=== PATIENT | female | born 1965 | race Caucasian/White ===

== ENCOUNTER 2017-07-03 11:19 | Emergency (ER) | payer MEDICAID ==
[~2017-07-03 11:19] MED LIST: PROC-8 PO
[2017-07-03] MEDS ORDERED: BENZ-16 PO (14:26)
[2017-07-03] MEDS ORDERED: AZIT-57 PO (14:26)
== END 2017-07-03 12:40 | disposition left against medical advice (07) ==
LOC: ER 11:20
DX: R05 Cough (principal); Z53.21 Procedure and treatment not carried out due to patient leaving prior to being seen by health care provider

== ENCOUNTER 2019-02-27 13:08 | Emergency (ER) | payer OTHER ==
[~2019-02-27] VITALS: Ht 152.4 cm; Wt 55.9 kg
[~2019-02-27 13:08] MED LIST changes: +LIDOcaine 1% 30ml preserv. free vial ONE
[2019-02-27 13:13] VITALS: BP 136/77
[2019-02-27] MEDS ORDERED: triamcinolone acetonide 40mg/ml inj IM ONE (14:20)
[2019-02-27] MEDS ORDERED: ibuprofen tablet 400 MG TABLET PO ONE (14:20)
[2019-02-27] MEDS ORDERED: acetaminophen 325mg tablet PO ONE (14:20)
--- NOTE | 2019-02-27 14:35 | NUR ---
DR SMITH AT BEDSIDE TO INJECT RT SHOULDER
[2019-02-27] MEDS ORDERED: CYCL-1 PO (14:40)
[2019-02-27] MEDS ORDERED: ACET-2615 PO (14:40)
== END 2019-02-27 14:55 | disposition home or self-care (01) ==
LOC: ER 13:09
DX: M25.511 Pain in right shoulder (principal); E78.00 Pure hypercholesterolemia, unspecified; K21.9 Gastro-esophageal reflux disease without esophagitis; G89.29 Other chronic pain; F32.9 Major depressive disorder, single episode, unspecified; Z86.69 Personal history of other diseases of the nervous system and sense organs; Z90.710 Acquired absence of both cervix and uterus; Z98.890 Other specified postprocedural states; Z98.51 Tubal ligation status; Z59.0 Homelessness; Z85.89 Personal history of malignant neoplasm of other organs and systems; Z88.8 Allergy status to other drugs, medicaments and biological substances; Z79.899 Other long term (current) drug therapy
CPT/HCPCS: 73030; 96372; 99283; J2001; J3301

== ENCOUNTER 2021-08-01 18:25 | Emergency (ER) | payer MEDICAID ==
[~2021-08-01] VITALS: Ht 152.4 cm; Wt 56.9 kg
[~2021-08-01 18:25] MED LIST changes: +CYCL-1 PO; -LIDOcaine 1% 30ml preserv. free vial ONE
[2021-08-01] MEDS ORDERED: HYDROcodone/acetaminophen 5mg/325mg tablet PO ONE (18:35)
[2021-08-01] MEDS ORDERED: ibuprofen tablet 400 MG TABLET PO ONE (19:25)
[2021-08-01] MEDS ORDERED: acetaminophen 325mg tablet PO ONE (19:25)
[2021-08-01 19:41] VITALS: BP 117/78
== END 2021-08-01 19:53 | disposition home or self-care (01) ==
LOC: ER 18:26
DX: S63.502A Unspecified sprain of left wrist, initial encounter (principal); M25.532 Pain in left wrist; E78.00 Pure hypercholesterolemia, unspecified; K21.9 Gastro-esophageal reflux disease without esophagitis; G89.29 Other chronic pain; F32.9 Major depressive disorder, single episode, unspecified; F17.200 Nicotine dependence, unspecified, uncomplicated; Z86.69 Personal history of other diseases of the nervous system and sense organs; Z85.41 Personal history of malignant neoplasm of cervix uteri; Z98.51 Tubal ligation status; Z90.710 Acquired absence of both cervix and uterus; Z59.00 Homelessness unspecified; Z88.8 Allergy status to other drugs, medicaments and biological substances; Z79.899 Other long term (current) drug therapy; W19.XXXA Unspecified fall, initial encounter; Y93.89 Activity, other specified; Y92.89 Other specified places as the place of occurrence of the external cause; Y99.8 Other external cause status
CPT/HCPCS: 29125; 73110; 99283

== ENCOUNTER 2024-08-24 11:15 | Day surgery (SDC) | payer MEDICAID ==
[2024-08-17 16:02] LABS: BASOPHILS # (AUTO) 0.1 X10'3 (0-0.2); BASOPHILS % (AUTO) 1.1 % (0-1); EOSINOPHILS # (AUTO) 0.4 X10'3 (0-0.9); EOSINOPHILS % (AUTO) 4.4 % (0-6); LYMPHOCYTES # (AUTO) 2.6 X10'3 (1.1-4.8); LYMPHOCYTES % (AUTO) 31.1 % (21-51); MEAN CORPUSCULAR HEMOGLOBIN 30.3 PG (27.0-31.0); MEAN CORPUSCULAR HGB CONC 34.1 g/dL (33.0-36.5); MEAN CORPUSCULAR VOLUME 89.1 FL (78-98); MEAN PLATELET VOLUME 7.1 FL (7.4-10.4); MONOCYTES # (AUTO) 0.5 X10'3 (0-0.9); MONOCYTES % (AUTO) 5.7 % (2-12); NEUTROPHILS # (AUTO) 4.8 X10'3 (1.8-7.7); NEUTROPHILS % (AUTO) 57.7 % (42-75); PRE OP HEMATOCRIT 35.8 % (35.0-45.0); PRE OP HEMOGLOBIN 12.2 g/dL (12.0-16.0); PRE OP PLATELET COUNT 488 X10'3 (140-440); PRE OP WHITE BLOOD COUNT 8.3 10'3 (4.8-10.8); RED BLOOD COUNT 4.01 X10'6 (4.20-5.60)
[2024-08-17 16:17] LABS: ALBUMIN 3.6 G/DL (3.4-5.0); ALBUMIN/GLOBULIN RATIO 0.9 (1.1-1.5); ALKALINE PHOSPHATASE 140 IU/L (46-116); BLOOD UREA NITROGEN 16 MG/DL (7-18); BUN/CREATININE RATIO 15.7 (10.0-20.0); CALCIUM 9.4 MG/DL (8.5-10.1); CHLORIDE 103 MMOL/L (99-107); CREATININE 1.02 MG/DL (0.40-0.90); PRE OP ALT 22 U/L (30-65); PRE OP ANION GAP 8 (8-16); PRE OP AST 15 U/L (10-37); PRE OP BILIRUB, TOTAL 0.4 MG/DL (0.0-1.0); PRE OP GLUCOSE 91 MG/DL (70-104); PRE OP POTASSIUM 3.5 MMOL/L (3.4-5.1); PRE OP SODIUM 137 MMOL/L (135-145); TOTAL CARBON DIOXIDE 25.9 MMOL/L (24-32); TOTAL PROTEIN 7.5 G/DL (6.4-8.2); eGFR 56 ML/MIN
[~2024-08-24] VITALS: Ht 152.4 cm; Wt 58.3 kg
[2024-08-24] VITALS (10 sets, daily range): BP systolic 126–143; BP diastolic 73–97; PULSE 83–94; RESP 13–17; TEMP 98.5; O2SAT 97–100
[~2024-08-24 11:15] MED LIST changes: -CYCL-1 PO; +FLO0.4C PO; +HYDR-3973 PO; +LACT1CAP26 PO; -PROC-8 PO
[2024-08-24] MEDS ORDERED: iohexol 300 MG/1 ML 50ml polymer ONE (12:04)
[2024-08-24] MEDS ORDERED: fentaNYL/PF 50MCG/1 ML 2ML syringe IV PRN ×2 (12:10)
[2024-08-24] MEDS ORDERED: morphine 2 MG/ML inj. syringe IV PRN (12:10)
[2024-08-24] MEDS ORDERED: labetalol 20mg/4ml (5mg/ml) syringe IV PRN (12:10)
[2024-08-24] MEDS ORDERED: ondansetron/PF 4mg/2ml inj IV PRN (12:10)
[2024-08-24] MEDS ORDERED: hydrALAZINE 20mg/ml inj. IV PRN (12:10)
[2024-08-24] MEDS ORDERED: ringers solution, lacted 1,000 ML IV SCH (12:10)
[2024-08-24] MEDS ORDERED: morphine 4 MG/ML inj SYRINge IV PRN (12:10)
[2024-08-24] MEDS: famotidine 20mg tablet PO ONE (12:32)
[2024-08-24] MEDS: ceFAZolin 2gm in dextrose, iso 50 ML IV ONE (12:32)
[2024-08-24] MEDS: ringers solution, lacted 1,000 ML IV SCH (12:32)
[2024-08-24] MEDS ORDERED: dexamethasone sod phosphate 4mg/ml inj. ONE (13:07)
[2024-08-24] MEDS ORDERED: LIDOcaine 2% (20mg/ml) 5ml vial ONE (13:07)
[2024-08-24] MEDS ORDERED: ondansetron/PF 4mg/2ml inj ONE (13:07)
[2024-08-24] MEDS ORDERED: fentaNYL/PF 50MCG/1 ML 2ML syringe ONE ×2 (13:07→14:15)
[2024-08-24] MEDS ORDERED: propofol inj 20 ML IV ONE (13:07)
[2024-08-24] MEDS ORDERED: sevoflurane 250ml liquid IH ONE (13:14)
[2024-08-24] MEDS ORDERED: rocuronium 10mg/ml inj IV ONE (13:51)
[2024-08-24] MEDS: iohexol 300 MG/1 ML 10ml vial IV ONE (14:15)
== END 2024-08-24 16:09 | disposition home or self-care (01) ==
LOC: PAS 11:15
PROVIDERS: ATTEND Urology
DX: N20.1 Calculus of ureter (principal); F17.210 Nicotine dependence, cigarettes, uncomplicated; F32.A Depression, unspecified; Z88.8 Allergy status to other drugs, medicaments and biological substances; K21.9 Gastro-esophageal reflux disease without esophagitis; Z79.899 Other long term (current) drug therapy
CPT/HCPCS: 36415; 52356; 74420; 80053; 82948; 85025; 93005; C1758; C2617; J0690; J1100; J2003; J2405; J2704; J3010; J3490; J7120; Q9967; Z7506; Z7508; Z7512; 76000; A4618; C1769; C1894

== ENCOUNTER 2025-03-04 02:04 | Emergency (ER) | payer MEDICAID ==
[~2025-03-04] VITALS: Ht 152.4 cm; Wt 53.6 kg
[~2025-03-04 02:04] MED LIST changes: -FLO0.4C PO; -LACT1CAP26 PO; +TAMS-55 PO
[2025-03-04] MEDS ORDERED: iohexol 300mg/ml 100ml inj. ONE (03:19)
[2025-03-04] MEDS: morphine 4 MG/ML inj SYRINge IV PRN (03:23)
[2025-03-04] MEDS: ketorolac trometh 15mg/ml vial 15 MG/ML ML IV ONE (03:23)
[2025-03-04] MEDS: ondansetron/PF 4mg/2ml inj IV ONE (03:24)
[2025-03-04] MEDS: normal saline 1000ML IV soln IVB ONE (03:24)
--- NOTE | 2025-03-04 03:28 | Physician Documentation ---
History of Present Illness ~ Chief Complaint: Flank Pain Stated Complaint: RIGHT SIDED ABD PAIN,NAUSEA Time Seen by MD: 03:06 Primary Medical Doctor: NONE Source: patient Mode of Arrival: POV Exam Limitations: no limitations HPI Chief Complaint: Abdominal pain Caveat: None Independent Historians: None History of Present Illness: Patient is a 59-year-old woman comes in from home complaining of lower abdominal pain and primarily on the right. Pain began three days ago. Pain came on gradually in his gotten progressively worse. Patient's pain is 9/10. Patient states in describes her pain as feeling like someone is squeezing her on the inside. No alleviating or exacerbating factors. Patient has had nausea but no vomiting. No diarrhea. No fever. Patient has had anorexia. Review of systems: All systems were reviewed and are negative except for what is indicated in the history of present illness. Past Medical History: Hemochromatosis Past Surgical History: None Social History: Tobacco use, denies alcohol use or drug use Medications: Reviewed as documented Nursing Notes Allergies: Reviewed as documented in Nursing Notes Medication Reconciliation Allergies: Coded Allergies: Pentazocine Lactate (Verified Allergy, Severe, "", 08/23/24) Scheduled Tamsulosin Hcl* (Flomax*), 1 CAP PO DAILY, (Reported) Scheduled PRN Hydrocodone Bit/Acetaminophen (Hydrocodone-Apap 10-325 Tablet), 1 TAB PO Q6H PRN for pain, (Reported) Past Medical History Past Medical History: Seizures, High Cholesterol, GERD, UTI, Chronic Back Pain, Cervical Cancer/Dysplasia, Depression Past Surgical History: , hysterectomy, orthopedic surgeries, tubal ligation Alcohol Use: None Drug Use: none Lives with: Other Lives In: Homeless Occupation: disabled Review of Systems All Other Systems at this time: Reviewed and Negative ROS Patient denies any other acute symptoms other than above. All other systems are negative Physical Exam Vital Signs: RN Vital Signs have been reviewed: Yes, Temperature: 98.6, Source: Oral, Heart Rate: 91, Respiratory Rate: 16, BP: 136/77, Pulse Oximetry: 99, Weight: 53.640 Oxygen Flow Rate: 0 Pulse Oximetry Reflects: adequate oxygenation Physical Exam General Appearance: MODERATE DISTRESS HEENT: Normal OP, moist oral mucosa, PERRL, EOMI Neck: supple, normal ROM, trachea midline Pulmonary: No respiratory distress, CTA, BS equal Cardiac: RRR, no murmur, rub or gallop, GI: nondistended, soft, DIFFUSE RIGHT-SIDED ABDOMINAL TENDERNESS, VOLUNTARY GUARDING, normal bowel sounds Extremities: normal ROM, no swelling, non-tender Skin: intact, dry, warm, no rashes Neuro: AAOx3, speech is clear, no focal motor weakness Psych: normal affect, good eye contact, no apparent hallucination, normal speech Progress Results/Orders Results/Orders Orders - PETER CASTELLANOS MD Saline Lock (03/04/25 03:09) Nothing By Mouth (03/04/25 Dinner) Straight Cath For Urine Sample (03/04/25 03:09) Ed Iv Pain Medications (03/04/25 03:09) Ct Abdomen Pelvis (03/04/25 03:55) Monitor (03/04/25 03:09) Morphine Iv (03/04/25 03:10) Normal Saline Bolus (03/04/25 03:10) Ultrasound Of Abdomen (03/04/25 05:03) Completed Orders - PETER CASTELLANOS MD Lipase (03/04/25 03:09) Ondansetron Inj. (Zofran 4mg/2ml Vial) (03/04/25 03:10) Ketorolac Trometh 15mg/Ml Vial (Toradol (03/04/25 03:10) Ct Abdomen Pelvis (03/04/25 03:55) Iohexol 300mg/Ml 100ml Inj. (Omnipaque-3 (03/04/25 03:19) Cbc/Diff (03/04/25 03:29) CMP (03/04/25 03:07) Piperacillin/Tazo 3.375gm/50ml (Zosyn 3. (03/04/25 05:00) Ultrasound Of Abdomen (03/04/25 05:03) Ua W/Microscopic, Cult If Ind (03/04/25 04:55) Medications Received in ER Medications (Trade) Dose Ordered Sig/Parul Route PRN Reason Start Time Stop Time Status Last Admin Dose Admin (Zofran 4mg/2ml vial) 4 mg ONCE ONCE IV 03/04/25 03:10 03/04/25 03:11 DC 03/04/25 03:24 4 MG (morphine inj.) 4 mg Q20M PRN IV moderate to severe pain 4-10 03/04/25 03:10 03/04/25 03:23 4 MG (0.9% sodium chloride (NS) 1000ml IV soln) 1,000 ml ONCE ONCE IVB 03/04/25 03:10 03/04/25 03:11 DC 03/04/25 03:24 1,000 ML (Toradol injection) 15 mg ONCE ONCE IV 03/04/25 03:10 03/04/25 03:11 DC 03/04/25 03:23 15 MG Piperacillin/ Tazobactam/ Dextrose 50 ml @ 100 mls/hr ONCE ONCE IV 03/04/25 05:00 03/04/25 05:29 DC 03/04/25 05:08 100 MLS/HR Vital Signs 03/04/25 03/04/25 03/04/25 03/04/25 02:09 02:50 02:54 03:23 Temp 97.9 98.6 Pulse 90 91 Resp 18 18 16 16 B/P (MAP) 135/84 136/77 (96) Pulse Ox 96 99 O2 Flow Rate 0 03/04/25 03/04/25 03/04/25 03/04/25 03:23 03:35 04:35 04:38 Pulse 89 84 Resp 16 22 16 16 B/P (MAP) 136/81 (99) 135/86 (102) Pulse Ox 98 98 O2 Flow Rate 0 03/04/25 03/04/25 04:38 05:26 Pulse 82 Resp 16 16 B/P (MAP) 129/75 (93) Pulse Ox 98 O2 Flow Rate 0 Laboratory Tests Test 03/04/25 03:07 03/04/25 03:36 03/04/25 04:55 CBC Comment Sodium Level 134 L Potassium Level 3.7 Chloride Level 103 Carbon Dioxide Level 16.9 L Anion Gap 14 Blood Urea Nitrogen 13 Creatinine 0.92 H Estimated GFR/1.73 m2 63 BUN/Creatinine Ratio 14.1 Glucose Level 127 H Calcium Level 9.6 Total Bilirubin 2.7 H Aspartate Amino Transf (AST/SGOT) 228 H Alanine Aminotransferase (ALT/SGPT) 496 H Alkaline Phosphatase 393 H Total Protein 7.8 Albumin 3.7 Globulin 4.1 Albumin/Globulin Ratio 0.9 L Lipase 53 Chemistry Comments White Blood Count 12.0 H Red Blood Count 3.98 L Hemoglobin 12.1 Hematocrit 36.3 Mean Corpuscular Volume 91.3 Mean Corpuscular Hemoglobin 30.5 Mean Corpuscular Hemoglobin Concent 33.4 Red Cell Distribution Width 13.4 Platelet Count 290 Mean Platelet Volume 7.9 Neutrophils (%) (Auto) 80.1 H Lymphocytes (%) (Auto) 10.2 L Monocytes (%) (Auto) 4.7 Eosinophils (%) (Auto) 4.4 Basophils (%) (Auto) 0.6 Neutrophils # (Auto) 9.6 H Lymphocytes # (Auto) 1.2 Monocytes # (Auto) 0.6 Eosinophils # (Auto) 0.5 Basophils # (Auto) 0.1 Urine Specimen Description Cln catch midstream Urine Color Yellow Urine Clarity Clear Urine pH 6.0 Urine Specific Farner <=1.005 Urine Protein Negative Urine Glucose (UA) Negative Urine Ketones Trace H Urine Occult Blood Moderate H Urine Nitrite Negative Urine Bilirubin Negative Urine Urobilinogen 0.2 Urine Leukocyte Esterase Negative Urine RBC 10-20 Urine WBC 0-4 Urine Squamous Epithelial Cells Few Urine Bacteria None seen Urine Hyaline Casts 0-3 Urine Mucus Few Urine Culture Indicated Not ind Volume Urine Centrifuged 10 ml Urine Comment Medical Decision Making Findings Differential diagnosis includes but is not limited to: Ureteral colic, hydronephrosis, , acute appendicitis, pyelonephritis, cholecystitis, pancreatitis, choledocholithiasis EKG independent interpretation: Abdomen and pelvis CT scan with IV contrast, indication: Abdominal pain Impression: 1. Distended gallbladder with wall thickening. Dilated common bile duct and intrahepatic biliary ductal dilatation with abrupt cut off of the common bile duct near the ampulla. Intrahepatic biliary duct dilatation. Further evaluation with MRCP is recommended. Right upper quadrant ultrasound also recommended as acute cholecystitis is not excluded. 2. Sequelae of chronic pancreatitis. Pancreatic ductal dilatation. 3. Mild left hydronephrosis due to 1.3 cm obstructing calculus in the left proximal ureter. Additional bilateral nonobstructive intrarenal calculi. 4. Fluid-filled small bowel loops and mucosal thickening in the distal colon may reflect enterocolitis in the appropriate clinical setting. Laboratory data independent interpretation: CBC: Leukocytosis of 12 CMP: Elevated LFTs, total bili 2.7, AST 228, ALT 496, alk-phos 393. Lipase: 53 Urinalysis: Emergency department course/medical decision-making: Patient is a 59-year-old woman who comes in with right-sided abdominal pain primarily in the right lower quadrant. However it is discover the patient has elevated LFTs and on CT scan has evidence for choledocholithiasis with intrahepatic biliary dilatation. Patient is given 1 L of normal saline. Patient is ordered Zosyn 3.375 g IV. Patient also given Zofran 4 mg IV for nausea. Patient will require transfer for higher level care for ERCP. Test results treatment plan and need for transfer was discussed with the patient. Consultation/communications: 5:00 a.m.: Transfer process initiated for higher level care. Patient will r equire ERCP 6:12 a.m.: Patient accepted by [facility] at ER. Departure Time of Disposition: 05:03 Disposition: 02 SHORT TERM HOSPITAL Impression: Primary Impression: Choledocholithiasis Referrals: NO PRIMARY CARE PROVIDER (PCP) Signature Scribe Signature: No scribe Attestation: No scribe PETER CASTELLANOS MD Mar 04, 2025 03:28
[2025-03-04 03:53] LABS: MEAN PLATELET VOLUME 7.9 FL (7.4-10.4); RED CELL DISTRIBUTION WIDTH 13.4 % (11.5-14.5)
--- NOTE | 2025-03-04 04:31 | RADIOLOGY REPORT ---
Exam: CT CT ABDOMEN PELVIS W/ IV CONTRAST History: Abdominal Pain Comparison Study: CT CT ABDOMEN PELVIS on DOS: 07/28/24 Contrast: Type of contrast: Omnipaque 300 Contrast injected: 80 ML Contrast wasted: 0 TECHNIQUE: CT of the abdomen pelvis was performed with intravenous contrast. Coronal and sagittal re formatted images are provided. Radiation Dose Information: CT Dose: CTDI volume is 10.1 mGy. Dose-length product is 444.3 mGy*cm FINDINGS: Lung Bases: There is right lower lobe atelectasis. Normal heart size. No pleural or pericardial effu cailin. Liver: The liver is normal in size. No focal lesions. Normal hepatic vascular enhancement. Gallbladder and Biliary Tree: The gallbladder is distended and there is wall thickening. There is in trahepatic biliary ductal dilatation. The common bile duct is also dilated measuring 2.1 cm with abr upt cut off near the ampulla. Spleen: Unremarkable Pancreas: There are multiple calcifications in the pancreatic head, body and tail. The main pancreat ic duct is dilated measuring 8 mm. This is probably similar to prior study although assessment was li mited on prior study due to lack of intravenous contrast. Adrenal Glands: Unremarkable Kidneys: The kidneys enhance symmetrically. There is mild left hydronephrosis due to 1.3 cm obstructi ve calculus in the left proximal ureter. There are bilateral nonobstructive intrarenal calculi measu ring up to 5 mm in the lower pole of the right kidney. Urinary bladder: Unremarkable. Bowel: The stomach is grossly normal in appearance. Fluid-filled small bowel loops which are not sign ificantly distended. There is mucosal thickening of the descending and sigmoid colon. Colonic diver ticulosis without acute diverticulitis. No findings to suggest acute appendicitis. Intraperitoneal cavity: No pneumoperitoneum. No ascites. Lymphadenopathy: No mesenteric, retroperitoneal or periportal lymphadenopathy. Abdominal Wall and Mesentery: Unremarkable. Vasculature: The visualized abdominal aorta is normal in size and caliber. 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 Pelvic Organs: Unremarkable Musculoskeletal: No aggressive focal bony lesions, acute fractures or dislocation. Soft tissues: Unremarkable. IMPRESSION: 1. Distended gallbladder with wall thickening. Dilated common bile duct and intrahepatic biliary duct al dilatation with abrupt cut off of the common bile duct near the ampulla. Intrahepatic biliary duct dilatation. Further evaluation with MRCP is recommended. Right upper quadrant ultrasound also recom mended as acute cholecystitis is not excluded. 2. Sequelae of chronic pancreatitis. Pancreatic ductal dilatation. 3. Mild left hydronephrosis due to 1.3 cm obstructing calculus in the left proximal ureter. Additiona l bilateral nonobstructive intrarenal calculi. 4. Fluid-filled small bowel loops and mucosal thickening in the distal colon may reflect enterocoliti s in the appropriate clinical setting.
[2025-03-04 04:47] LABS: CREATININE 0.92 MG/DL (0.40-0.90); TOTAL CARBON DIOXIDE 16.9 MMOL/L (24-32); eCRCL 48 ML/MIN; eGFR 63 ML/MIN
[2025-03-04 05:06] LABS: LEUKOCYTE ESTERASE ,URINE NEGATIVE (Neg); NITRITES, URINE NEGATIVE (Neg); OCCULT BLOOD,URINE MODERATE (Neg)
[2025-03-04] MEDS: piperacillin/tazo 3.375gm/50ml 50 ML IV ONE (05:08)
[2025-03-04 05:10] LABS: UA COLLECTION TYPE CLN CATCH MIDSTREAM
[2025-03-04 05:11] LABS: HYALINE CASTS 0-3 /LPF (NEGATIVE); MUCUS STRANDS FEW /LPF (Neg); SQUAMOUS EPITHELIAL CELL,UR FEW /LPF (FEW)
--- NOTE | 2025-03-04 06:45 | RADIOLOGY REPORT ---
INDICATION: Abdominal Pain R/O Gallbladder TECHNIQUE: Multiple real-time sonographic images of the abdomen were obtained. COMPARISON: CT CT ABDOMEN PELVIS W/ IV CONTRAST on DOS: 03/04/25 FINDINGS: The liver is homogenous in echogenicity. The liver measures 16.5 cm. There is intrahepatic biliary ductal dilatation. Main portal vein has hepatopetal flow. The gallbladder wall measures 0.5 cm. No gallstones or sludge is seen. The common duct measures 1.0 cm and demonstrates stone in the common bile duct measuring 1.7 cm. No pericholecystic fluid is note d. Positive sonographic Fernandez's sign. The right kidney measures 8.5 cm. No hydronephrosis. The pancreas is not well visualized due to obscuration from bowel gas. The visualized portions of the IVC and aorta are grossly unremarkable. IMPRESSION: 1. Intrahepatic and extrahepatic biliary ductal dilatation. There appears to be a common bile duct st one and there is a positive sonographic Fernandez's sign. Although no gallstones are identified, these findings are concerning for acute cholecystitis and obstruction secondary to the choledocholithiasis. On the CT same date, the stone is in close proximity to the pancreatic head and was difficult to del ineate from the other pancreatic calcifications.
[2025-03-04 06:48] VITALS: BP 115/69; PULSE 90; RESP 16; TEMP 98.4; O2SAT 98
== END 2025-03-04 07:11 | disposition short-term general hospital (02) ==
LOC: ER 02:05
DX: K80.50 Calculus of bile duct without cholangitis or cholecystitis without obstruction (principal); F32.A Depression, unspecified; K21.9 Gastro-esophageal reflux disease without esophagitis; E78.00 Pure hypercholesterolemia, unspecified; G89.29 Other chronic pain; Z88.8 Allergy status to other drugs, medicaments and biological substances; Z79.899 Other long term (current) drug therapy; Z85.41 Personal history of malignant neoplasm of cervix uteri; Z90.710 Acquired absence of both cervix and uterus; Z59.00 Homelessness unspecified
CPT/HCPCS: 36415; 74177; 76700; 80053; 81001; 83690; 85025; 96361; 96374; 96375; 99285; J1885; J2270; J2405; J2543; J7030; Q9967